=== PATIENT | female | born 1950 | race Caucasian/White ===

== ENCOUNTER 2018-08-19 22:03 | Emergency (ER) | payer MEDICARE, OTHER ==
[~2018-08-19] VITALS: Ht 162.6 cm; Wt 63.0 kg
--- NOTE | 2018-08-19 22:14 | ED Head Injury ---
General Stated Complaint: FALL/HEAD INJURY Source: patient, EMS Exam Limitations: no limitations History of Present Illness Date Seen by Provider: Aug 19, 2018 Time Seen by Provider: 22:10 Initial Comments To ER per EMS from [facility] with reports of a fall and head injury. She' s fallen about 5 times today and during one of these falls struck the center of her forehead on the edge of her dresser. No loss of consciousness. Tetanus is not up-to-date she states she is allergic to the tetanus vaccination. She was recently admitted to [facility] from [facility] where she was admitted from the rehabilitation unit at [facility] following a stroke 2 with left-sided deficit. She relates the falls to loss of balance as a result of her stroke. She states that she did land on the left hip and has some left hip pain. She is also had a runny nose and cough for the past few days. Occurred: just prior to arrival Severity: moderate Location: frontal Loss of Consciousness: no loss of consciousness Associated Systoms: No Headaches Allergies and Home Medications Allergies Uncoded Allergies: Tdap (Allergy, Unknown, 08/19/18) Patient Home Medication List Home Medication List Reviewed: Yes Review of Systems Review of Systems Constitutional: see HPI Eyes: No Symptoms Reported Ears, Nose, Mouth, Throat: no symptoms reported Respiratory: no symptoms reported Genitourinary: no symptoms reported Musculoskeletal: see HPI; No neck pain Skin: no symptoms reported Psychiatric/Neurological: Denies Headache Physical Exam Vital Signs Vital Signs - First Documented 08/19/18 22:05 Temp 96.9 Pulse 72 Resp 18 B/P (MAP) 136/62 (86) Pulse Ox 98 O2 Delivery Room Air Capillary Refill : Height, Weight, BMI Height: '" Weight: lbs. oz. kg; BMI Method: General Appearance: WD/WN, no apparent distress HEENT: PERRL/EOMI, normal ENT inspection, other (2 cm laceration to the center of the forehead just inferior to the hairline.) Respiratory: normal breath sounds, no respiratory distress, no accessory muscle use Extremities: normal range of motion, other (ecchymosis lateral left hip) Psychiatric: alert, oriented x 3 Motor/Sensory: no motor deficit, no sensory deficit Skin: normal color, warm/dry [place] Coma Score Best Eye Response: (4) Open Spontaneously Best Verbal Response: (5) Oriented Best Motor Response: (6) Obeys Commands [place] Total: 15 Procedures/Interventions Wound Location: Scalp Wound Length (cm): 2 Wound Explored: clean Irrigated w/ Saline (ccs): 65 Anesthesia: Lidocaine w/ Epi Volume Anesthetic (ccs): 3 Suture: Ethlion Suture Size: 5-0 Number of Sutures: 7 Layer Closure?: 1 Number Deep Layer Sutures: 0 Progress/Results/Core Measures Results/Orders My Orders Orders - NICOLE BRICE APRN Lidocaine/Epi 1% 1:100,000 (Xylocaine /E (08/19/18 22:15) Ct Head/Cervical Spine Wo (08/19/18 22:08) Pelvis With Left Hip 2-3 Views (08/19/18 22:17) Lidocaine/Epi 2% 1:100,000 (Xylocaine/Ep (08/19/18 22:30) Fentanyl Injection (Sublimaze Injection (08/19/18 22:30) Medications Given in ED Current Medications Medications Dose Ordered Sig/Roni Route Start Time Stop Time Status Last Admin Dose Admin Fentanyl Citrate 50 mcg ONCE ONCE IVP 08/19/18 22:30 08/19/18 22:31 DC 08/19/18 22:24 50 MCG Lidocaine/ Epinephrine 2 ml ONCE ONCE INJ 08/19/18 22:30 08/19/18 22:31 DC 08/19/18 22:23 2 ML Vital Signs/I&O 08/19/18 08/19/18 22:05 22:24 Temp 96.9 96.9 Pulse 72 Resp 18 B/P (MAP) 136/62 (86) Pulse Ox 98 O2 Delivery Room Air Departure Communication (Admissions) Discussed the CT findings with radiology from stat read. The fixation plate is not flush against the anterior spinal column as expected. This does push against the esophagus and there is some esophageal thickening in this location suggesting this to be a chronic problem. Patient denies any neck pain now or ever. Cervical collar removed. We will give her phone number to Dr. Zhang and Dr. Cisse for follow-up. She is also got some issues with falling and is in the independent living side of [facility], may need to be sent to the assisted living side. Evaluated the pelvis and hip x-ray with Dr. Kyle. No acute findings Impression Primary Impression: Scalp laceration Qualified Codes: S01.01XA - Laceration without foreign body of scalp, initial encounter Additional Impressions: Bronchitis Contusion, hip Disposition: HOME, SELF-CARE Condition: Stable Departure-Patient Inst. Decision time for Depature: 23:18 Referrals: MANDI CISSE BRIAN J MD Patient Instructions: Laceration Repair With Stitches (DC) Add. Discharge Instructions: 1. You may shower starting tomorrow. Return to the emergency room to have the stitches removed in 6-7 days. Return to ER before then for any concerns. Call one of the spine surgeons listed to make an appointment to be seen to evaluate the location of the hardware in her neck to determine if this needs any intervention or not. Scripts Benzonatate (TESSALON PERLES) 100 Mg Capsule 100 MG PO TID PRN for COUGH, #14 CAP Prov: NICOLE BRICE DIRECTOR BLOOD BANK 08/19/18 Cephalexin (Keflex) 500 Mg Capsule 500 MG PO TID, #21 CAP Prov: NICOLE BRICE DIRECTOR BLOOD BANK 08/19/18 Copy Copies To 1: MARION GARCIA MD; LINETTE ZHANG MD, PETER J DIRECTOR BLOOD BANK Aug 19, 2018 22:14
[2018-08-19] MEDS ORDERED: LIDOCAINE/EPI 1%-1:100,000 (XYLOCAINE) 20ML INJ ONE (22:15)
[2018-08-19] MEDS ORDERED: LIDOCAINE/EPI 2% 1:100,00 (XYLOCAINE) 20 ML VIAL INJ ONE (22:30)
[2018-08-19] MEDS ORDERED: fentaNYL INJECTION 100 MCG/2 ML AMP IVP ONE (22:30)
[2018-08-19] MEDS ORDERED: CEPH-507 PO (23:21)
[2018-08-19] MEDS ORDERED: BENZ100C18 PO (23:21)
[2018-08-19 23:30] VITALS: BP 104/92
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
--- OUTSIDE RECORDS SUMMARY | 2018-08-19 23:33 | XMS REPORT ---
Author Author GEOFFREY AMES Organization [facility] Address [address] [place] [address] Care Team Providers Care Pneumatic Riveter Name Role Phone GEOFFREY AMES Unavailable PROBLEMS Unknown Problems ALLERGIES No Information ENCOUNTERS Encounter Location Date Diagnosis [facility] [address] [facility] [id number] [address] Jul, [facility] [address] [facility] [id number] [address] Jul, IMMUNIZATIONS No Known Immunizations SOCIAL HISTORY Never Assessed REASON FOR VISIT controlled med fill PLAN OF CARE VITAL SIGNS MEDICATIONS Medication Instructions Dosage Frequency Start Date End Date Duration Status Ativan 0.5 MG Orally at bedtime 1 tablet as needed 7 days Active RESULTS No Results PROCEDURES No Known procedures INSTRUCTIONS MEDICATIONS ADMINISTERED No Known Medications
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
--- NOTE | 2018-08-20 08:23 | Diagnostic Imaging Report ---
PATIENT HISTORY: Fall, pain in left hip. TECHNIQUE: Frontal view of the pelvis. Frontal and lateral views of the left hip. COMPARISON: None. FINDINGS: No acute fracture or dislocation is seen in the pelvis or left hip. Alignment appears normal. There is a right total hip arthroplasty without hardware complication seen. There are advanced degenerative changes in the left hip. There are mild degenerative changes in the bilateral sacroiliac joints. IMPRESSION: 1. Advanced degenerative changes in the left hip without acute osseous abnormality seen. 2. Total right hip arthroplasty without hardware complication seen. Dictated by: Dictated on workstation # [id number]
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
== END 2018-08-19 23:32 | disposition home or self-care (01) ==
LOC: ER 22:04
DX: S01.01XA Laceration without foreign body of scalp, initial encounter (principal); S70.02XA Contusion of left hip, initial encounter; J40 Bronchitis, not specified as acute or chronic; R40.2142 Coma scale, eyes open, spontaneous, at arrival to emergency department; R40.2252 Coma scale, best verbal response, oriented, at arrival to emergency department; R40.2362 Coma scale, best motor response, obeys commands, at arrival to emergency department; Z88.7 Allergy status to serum and vaccine; Z86.73 Personal history of transient ischemic attack (TIA), and cerebral infarction without residual deficits; W01.190A Fall on same level from slipping, tripping and stumbling with subsequent striking against furniture, initial encounter
CPT/HCPCS: 12011; 70450; 72125

== ENCOUNTER 2018-09-13 16:26 | Emergency (ER) | payer MEDICARE, BC ==
[~2018-09-13] VITALS: Ht 157.5 cm; Wt 56.7 kg
[~2018-09-13 16:26] MED LIST: BENZ100C18 PO; CEPH-507 PO
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
--- NOTE | 2018-09-13 17:14 | Diagnostic Imaging Report ---
INDICATION: Left hip pain. COMPARISON: 08/19/2018. TECHNIQUE: AP pelvis with AP and frog-leg lateral views of the left hip. FINDINGS: Severe degenerative changes of left hip are present. No displaced fracture of the proximal left femur. No hip dislocation. No displaced fracture within the pelvis. Right total hip arthroplasty. Heterotopic ossification along the superior and lateral margin of the right greater trochanter is unchanged. IMPRESSION: 1. Severe degenerative arthritis of the left hip without acute fracture. Dictated by: Dictated on workstation # [id number]
[2018-09-13] MEDS ORDERED: HYDROcodone/APAP 5 MG/325 MG (LORTAB) TAB PO ONE (17:15)
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
--- NOTE | 2018-09-13 18:12 | Diagnostic Imaging Report ---
PROCEDURE: CT head and CT cervical spine without contrast. TECHNIQUE: Multiple contiguous axial images were obtained through the brain and cervical spine without the use of intravenous contrast. Sagittal and coronal reformations through the cervical spine were then performed. INDICATION: Status post fall three days ago, bruising. CORRELATION STUDY: 08/19/2018. FINDINGS: CT HEAD: Mild generalized atrophic changes with prominence of the ventricles and sulci again demonstrated. Basal ganglia calcifications are present. No intracranial hemorrhage. Scattered areas of decreased attenuation, while nonspecific, favor likely changes of small vessel ischemic disease. Basilar cisterns are maintained. CT CERVICAL SPINE: Extensive surgical changes of the cervical spine without anterior plate and vertebral body screws extending from C3-C7. The plate remains anteriorly positioned in relation to the vertebral bodies and appears stable. Alignment appears to be relatively anatomic. Incomplete bony fusion is again demonstrated at C4-C5 and C5-C6 vertebral body segments. Posterior elements intact and in normal alignment. Odontoid intact. Slight asymmetry, anteriorly, at the C3-C4 level appears unchanged. Vascular calcification at the carotid bifurcation. IMPRESSION: CT HEAD: Generally stable, negative appearing noncontrast CT imaging of the head. CT CERVICAL SPINE: Stable appearance about the cervical spine. No suggestion for acute fracture or traumatic subluxation. Extensive anterior fusion from C3-C7 appears stable. Dictated by: Dictated on workstation # [id number]
--- NOTE | 2018-09-13 18:30 | Diagnostic Imaging Report ---
PROCEDURE: CT left lower extremity without contrast. TECHNIQUE: Multiple contiguous axial images were obtained through the left hip without the use of intravenous contrast. Sagittal and coronal reformations were then performed. INDICATION: Status post fall three days ago, left hip pain. Bruising. FINDINGS: Detail is limited on this study with extensive amount of artifact likely largely attributed to metallic streak artifact from right hip prosthesis. The femoral head acetabular relationship is maintained. There is; however, rather marked joint space narrowing. Osteophyte formation and subcortical cystic change, particularly of the acetabulum, is present. Diffuse bony demineralization is present. The greater trochanter and intertrochanteric region preserved. The left pubic rami are maintained with pubic symphysis preserved. Sacrum and SI joints are not included in the area imaged. Soft tissue are markedly limited on this study. IMPRESSION: Negative for acute fracture or dislocation of the left hip. Advanced osteoarthritic changes with joint space narrowing, osteophyte formation and subcortical cystic change. Dictated by: Dictated on workstation # [id number]
[2018-09-13] MEDS ORDERED: HYDR-4226 PO (18:53)
[2018-09-13 19:03] VITALS: BP 125/89
== END 2018-09-13 19:03 | disposition home or self-care (01) ==
LOC: EDUNIT# 16:26 → ER 16:28
DX: S70.02XA Contusion of left hip, initial encounter (principal); Z88.7 Allergy status to serum and vaccine; Z86.73 Personal history of transient ischemic attack (TIA), and cerebral infarction without residual deficits; W19.XXXA Unspecified fall, initial encounter; W22.09XA Striking against other stationary object, initial encounter; Y92.129 Unspecified place in nursing home as the place of occurrence of the external cause
CPT/HCPCS: 70450; 72125; 73700

== ENCOUNTER 2019-02-04 15:30 | Emergency (ER) | payer MEDICARE, BC ==
[~2019-02-04] VITALS: Ht 162.6 cm; Wt 64.0 kg
[~2019-02-04 15:30] MED LIST changes: +HYDR-4226 PO
--- OUTSIDE RECORDS SUMMARY | 2019-02-04 15:35 | XMS REPORT | Continuity of Care Document ---
Author Organization Unknown Address Unknown Allergies There is no data. Medications There is no data. Problems There is no data. Procedures There is no data. Results There is no data. Encounters ACCT No. Visit Date/Time Discharge Status Pt. Type Provider Facility Loc./Unit Complaint [id number] 12/19/2018 10:40:00 12/19/2018 23:59:59 CLS Outpatient JOSE SMART, MARION [facility]TERZachary [facility]
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
[2019-02-04] MEDS ORDERED: fentaNYL INJECTION 100 MCG/2 ML AMP IVP PRN (15:45)
[2019-02-04 15:54] LABS: BASOPHILS % (AUTO) 0 % (0-10); EOSINOPHILS # (AUTO) 0.1 10^3/uL (0.0-0.3); EOSINOPHILS % (AUTO) 1 % (0-10); HEMATOCRIT 32 % (35-52); LYMPHOCYTES # (AUTO) 0.7 X 10^3 (1.0-4.0); LYMPHOCYTES % (AUTO) 17 % (12-44); MEAN CORPUSCULAR HEMOGLOBIN 30 PG (25-34); MEAN CORPUSCULAR HGB CONC 34 G/DL (32-36); MEAN CORPUSCULAR VOLUME 88 FL (80-99); MEAN PLATELET VOLUME 10.6 FL (7.4-10.4); MONOCYTES # (AUTO) 0.5 X 10^3 (0.0-1.0); MONOCYTES % (AUTO) 11 % (0-12); NEUTROPHILS # (AUTO) 3.1 X 10^3 (1.8-7.8); NEUTROPHILS % (AUTO) 71 % (42-75); PLATELET COUNT 212 10^3/uL (130-400); RED CELL DISTRIBUTION WIDTH 13.9 % (10.0-14.5); WHITE BLOOD COUNT 4.3 10^3/uL (4.3-11.0)
--- NOTE | 2019-02-04 16:07 | Diagnostic Imaging Report ---
PATIENT HISTORY: Fall, left hip pain. TECHNIQUE: Two views of the left hip. COMPARISON: 09/13/2018. FINDINGS: Brbuxefk-qa-yuqihf degenerative changes are seen in the left hip joint, similar to the prior study. No acute fracture is seen. The femoral head is well seated in the acetabulum. IMPRESSION: Sucsczgw-sb-ghdwuy degenerative changes in the left hip with no acute fracture seen. Dictated by: Dictated on workstation # [id number]
[2019-02-04 16:13] LABS: ALBUMIN 4.2 GM/DL (3.2-4.5); BILIRUBIN,TOTAL 0.3 MG/DL (0.1-1.0); CALCIUM 9.1 MG/DL (8.5-10.1); CREATININE SERUM 1.36 MG/DL (0.60-1.30); POTASSIUM 4.9 MMOL/L (3.6-5.0); TOTAL PROTEIN 6.3 GM/DL (6.4-8.2)
--- NOTE | 2019-02-04 16:29 | ED Fall/Injury ---
General Chief Complaint: Trauma EMS/Air Arrival Activat Stated Complaint: FALL Nursing Triage Note: see trama flow sheet Source: patient Exam Limitations: no limitations History of Present Illness Date Seen by Provider: February 04, 2019 Time Seen by Provider: 15:35 Initial Comments Patient presents with the chief complaint that just prior to arrival she had a fall. Standing struck the back of her head did not lose consciousness. She is on Plavix. EMS reports he was acting confused and asking same questions over again. GCS 14. Patient was taking her trash out lost her balance and fell backwards striking the back of her head against the concrete. Allergies and Home Medications Allergies Coded Allergies: sulfamethoxazole (Verified Allergy, Unknown, 02/04/19) trimethoprim (Verified Allergy, Unknown, 02/04/19) Uncoded Allergies: Tdap (Allergy, Unknown, 08/19/18) Home Medications Benzonatate 100 Mg Capsule, 100 MG PO TID PRN for COUGH Prescribed by: NICOLE BRICE on 08/19/18 232 Cephalexin 500 Mg Capsule, 500 MG PO TID Prescribed by: NICOLE BRICE on 08/19/18 2321 Hydrocodone/Acetaminophen 1 Each Tablet, 1 EACH PO Q6H PRN for PAIN-MODERATE Prescribed by: NICOLE BRICE on 09/13/18 1853 Ondansetron 4 Mg Tab.rapdis, 4 MG PO Q6H PRN for NAUSEA/VOMITING Prescribed by: MARY MERLOS on 02/04/19 1707 Patient Home Medication List Home Medication List Reviewed: Yes Review of Systems Review of Systems Constitutional: No chills, No diaphoresis Eyes: Denies Blindness, Denies Blurred Vision Ears, Nose, Mouth, Throat: denies ear pain, denies ear discharge Cardiovascular: No chest pain, No palpitations Gastrointestinal: No abdominal pain, No constipation, No nausea Past Rynqyyh-Weacgh-Fiyjuv Hx Patient Social History Alcohol Use: Denies Use Recreational Drug Use: No 2nd Hand Smoke Exposure: No Recent Foreign Travel: No Contact w/Someone Who Travel: No Recent Infectious Disease Expo: No Recent Hopitalizations: No Immunizations Up To Date Tetanus Booster (TDap): Unknown Seasonal Allergies Seasonal Allergies: No Past Medical History Surgeries: Yes Orthopedic Respiratory: No Cardiac: No Neurological: Yes 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 oz. 63.028572jo; 21.09 BMI Method:Stated General Appearance: WD/WN, no apparent distress HEENT: PERRL/EOMI, normal ENT inspection, TMs normal, other (3 cm diameter hematoma on the right occiput without any other trauma seen. No laceration. No hemotympanum, malcolm sign or raccoon eyes.) Neck: non-tender, full range of motion, supple, normal inspection Cardiovascular: normal peripheral pulses, regular rate, rhythm Respiratory: chest non-tender, lungs clear, normal breath sounds, no respiratory distress, no accessory muscle use Peripheral Pulses: 2+ Dorsalis Pedis (R), 2+ Left Dors-Pedis (L), 2+ Radial Pulses (R), 2+ Radial Pulses (L) Gastrointestinal: normal bowel sounds, non tender, soft, no organomegaly Back: normal inspection, no vertebral tenderness Extremities: normal range of motion, non-tender, normal inspection, no pedal edema, no calf tenderness, normal capillary refill, other (mild tenderness in the left hip over the greater trochanter femur) 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, no motor/sensory deficits, alert, normal mood/affect, oriented x 3, other (mild stutter) Skin: normal color, warm/dry, ecchymosis (right occiput) Procedures/Interventions Suture Size: 5-0 Progress/Results/Core Measures Results/Orders Lab Results Laboratory Tests Test 02/04/19 15:44 Range/Units White Blood Count 4.3 4.3-11.0 10^3/uL Red Blood Count 3.67 L 4.35-5.85 10^6/uL Hemoglobin 11.0 L 11.5-16.0 G/DL Hematocrit 32 L 35-52 % Mean Corpuscular Volume 88 80-99 FL Mean Corpuscular Hemoglobin 30 25-34 PG Mean Corpuscular Hemoglobin Concent 34 32-36 G/DL Red Cell Distribution Width 13.9 10.0-14.5 % Platelet Count 212 130-400 10^3/uL Mean Platelet Volume 10.6 H 7.4-10.4 FL Neutrophils (%) (Auto) 71 42-75 % Lymphocytes (%) (Auto) 17 12-44 % Monocytes (%) (Auto) 11 0-12 % Eosinophils (%) (Auto) 1 0-10 % Basophils (%) (Auto) 0 0-10 % Neutrophils # (Auto) 3.1 1.8-7.8 X 10^3 Lymphocytes # (Auto) 0.7 L 1.0-4.0 X 10^3 Monocytes # (Auto) 0.5 0.0-1.0 X 10^3 Eosinophils # (Auto) 0.1 0.0-0.3 10^3/uL Basophils # (Auto) 0.0 0.0-0.1 10^3/uL Sodium Level 135 135-145 MMOL/L Potassium Level 4.9 3.6-5.0 MMOL/L Chloride Level 102 98-107 MMOL/L Carbon Dioxide Level 21 21-32 MMOL/L Anion Gap 12 5-14 MMOL/L Blood Urea Nitrogen 17 7-18 MG/DL Creatinine 1.36 H 0.60-1.30 MG/DL Estimat Glomerular Filtration Rate 38 BUN/Creatinine Ratio 13 Glucose Level 94 70-105 MG/DL Calcium Level 9.1 8.5-10.1 MG/DL Corrected Calcium 8.9 8.5-10.1 MG/DL Total Bilirubin 0.3 0.1-1.0 MG/DL Aspartate Amino Transf (AST/SGOT) 19 5-34 U/L Alanine Aminotransferase (ALT/SGPT) 20 0-55 U/L Alkaline Phosphatase 86 40-136 U/L Total Protein 6.3 L 6.4-8.2 GM/DL Albumin 4.2 3.2-4.5 GM/DL My Orders Orders - MARY MERLOS Ct Head/Cervical Spine Wo (02/04/19 15:38) Hip, Left, 2 Views (02/04/19 15:38) Cbc With Automated Diff (02/04/19 15:38) Comprehensive Metabolic Panel (02/04/19 15:38) Fentanyl Injection (Sublimaze Injection (02/04/19 15:45) Naproxen Tablet (Naprosyn Tablet) (02/04/19 17:15) Ibuprofen Tablet (Motrin Tablet) (02/04/19 17:45) Medications Given in ED Current Medications Medications Dose Ordered Sig/Roni Route Start Time Stop Time Status Last Admin Dose Admin Fentanyl Citrate 50 mcg Q1H PRN IVP 02/04/19 15:45 02/04/19 15:53 50 MCG Ibuprofen 800 mg ONCE ONCE PO 02/04/19 17:45 02/04/19 17:46 DC 02/04/19 17:44 800 MG Progress Progress Note : Time: 17:55 Progress Note Consulted with trauma surgeon Dr. Vallecillo. He agrees with disposition. . EMS reports patient has some confusion however the family reports the patient at baseline has some confusion anyways subsequent to her history of stroke. Her stuttering is also subsequent to her stroke. Diagnostic Imaging Diagonstic Imaging: Xray Plain Films/CT/US/NM/MRI: pelvis (left hip), hip Comments NAME: SENIA ZACARIAS MED REC#: [id number] PHYSICIAN: MARY MERLOS MD CC: ASHLEY STEPHEN MD; MARY MERLOS Page 1 of 1 RADIOLOGY REPORT [facility] [place] CC: ASHLEY STEPHEN MD; MARY MERLOS Page 1 of 1 RADIOLOGY REPORT NAME: SENIA ZACARIAS MED REC#: [id number] PT STATUS: REG ER : 1950 PHYSICIAN: MARY MERLOS MD ADMIT DATE: 02/04/19/ER Signed Date of Exam: 02/04/19 HIP, LEFT, 2 VIEWS PATIENT HISTORY: Fall, left hip pain. TECHNIQUE: Two views of the left hip. COMPARISON: 09/13/2018. FINDINGS: Wvkevjts-no-zdhddn degenerative changes are seen in the left hip joint, similar to the prior study. No acute fracture is seen. The femoral head is well seated in the acetabulum. IMPRESSION: Yqirebeb-zr-oxezcq degenerative changes in the left hip with no acute fracture seen. Dictated by: Dictated on workstation # [id number] Dict: 02/04/19 1604 Trans: 02/04/19 1612 Interpreted by: ASHLEY STEPHEN MD Electronically signed by: ASHLEY STEPHEN MD 02/04/19 1612 Reviewed: Reviewed by Me Diagonstic Imaging: CT (noncontrast) Plain Films/CT/US/NM/MRI: c-spine, pelvis Comments [facility] [place] [place] NAME: SENIA ZACARIAS [facility] REC#: [id number] PT STATUS: REG ER : 1950 PHYSICIAN: MARY MERLOS MD ADMIT DATE: 02/04/19/ER Draft Date of Exam:02/04/19 CT HEAD/CERVICAL SPINE WO PROCEDURE: CT head and CT cervical spine without contrast. TECHNIQUE: Multiple contiguous axial images were obtained through the brain and cervical spine without the use of intravenous contrast. Sagittal and coronal reformations through the cervical spine were then performed. Auto Exposure Controls were utilized during the CT exam to meet ALARA standards for radiation dose reduction. INDICATION: Fall. Trauma to the head. COMPARISON: 09/13/2018. FINDINGS: CT head: The ventricles and cortical sulci are diffusely prominent, compatible with age-related volume loss. There are confluent areas of abnormal, low attenuation in the periventricular white matter. This is consistent with chronic small vessel ischemic changes. There is no midline shift or mass-effect. No acute intra-axial hemorrhage is seen. There are no abnormal areas of increased or decreased density to suggest acute hemorrhage or edema. No extra-axial masses or collections are present. Soft tissue hematoma is noted overlying the posterior right calvarium. The underlying bony calvarium is intact. The visualized paranasal sinuses are unremarkable. The mastoid air cells are clear. CT cervical spine: Static alignment of the cervical spine is maintained. Postsurgical changes of previous anterior fusion of C3 through C7 are identified. [place] screws appear well seated and are intact. Anterior fusion plate also appears to be intact and stable in position. No unexpected radiopaque foreign bodies are seen. There is no significant bozena or retrolisthesis. There is no evidence of jumped facets. Vertebral body heights are preserved. There is no evidence of acute fracture. No bony fragments are seen within the spinal canal. There are multilevel degenerative changes consisting of intervertebral disc height loss with anterior and posterior disc osteophyte complex formations, stable compared to prior exam. Pre and paravertebral soft tissue structures are unremarkable. Note is made of calcified carotid atherosclerosis. Included portions of the lung apices are clear IMPRESSION: 1. No acute intracranial abnormality. No CT evidence of mass, acute infarct or intracranial hemorrhage. 2. Chronic small vessel ischemic changes in deep white matter. 3. Soft tissue hematoma of the posterior scalp, but no underlying acute calvarial deformity. 4. No acute fracture or dislocation of the cervical spine. 5. Postsurgical changes of previous extensive anterior cervical fusion of the cervical spine. No evidence of hardware fracture or failure. Dictated on workstation # [id number] Dict: 02/04/19 1640 Trans: 02/04/19 1651 [id number] Interpreted by: PAUL COLE MD Electronically signed by: Reviewed: Reviewed by Me Departure Impression Primary Impression: Fall Qualified Codes: W19.XXXA - Unspecified fall, initial encounter Additional Impressions: Hematoma Concussion Qualified Codes: S06.0X0A - Concussion without loss of consciousness, initial encounter Disposition: 01 HOME, SELF-CARE Condition: Stable Departure-Patient Inst. Decision time for Depature: 17:06 Referrals: [facility] [place] ([place]P/Family) Primary Care Physician Patient Instructions: Concussion in Adults Add. Discharge Instructions: Ice pack to the back your head and Tylenol and Motrin as necessary. If you have any concussion symptoms of headache, confusion, nausea or blurry vision then you should get some sleep. Follow-up primary care as necessary. All discharge instructions reviewed with patient and/or family. Voiced understanding. Scripts Ondansetron (Ondansetron Odt) 4 Mg Tab.rapdis 4 MG PO Q6H PRN for NAUSEA/VOMITING, #8 TAB 0 Refills Prov: MARY MERLOS 02/04/19 MARY MERLOS February 04, 2019 16:29
--- NOTE | 2019-02-04 16:52 | Diagnostic Imaging Report ---
PROCEDURE: CT head and CT cervical spine without contrast. TECHNIQUE: Multiple contiguous axial images were obtained through the brain and cervical spine without the use of intravenous contrast. Sagittal and coronal reformations through the cervical spine were then performed. Auto Exposure Controls were utilized during the CT exam to meet ALARA standards for radiation dose reduction. INDICATION: Fall. Trauma to the head. COMPARISON: 09/13/2018. FINDINGS: CT head: The ventricles and cortical sulci are diffusely prominent, compatible with age-related volume loss. There are confluent areas of abnormal, low attenuation in the periventricular white matter. This is consistent with chronic small vessel ischemic changes. There is no midline shift or mass-effect. No acute intra-axial hemorrhage is seen. There are no abnormal areas of increased or decreased density to suggest acute hemorrhage or edema. No extra-axial masses or collections are present. Soft tissue hematoma is noted overlying the posterior right calvarium. The underlying bony calvarium is intact. The visualized paranasal sinuses are unremarkable. The mastoid air cells are clear. CT cervical spine: Static alignment of the cervical spine is maintained. Postsurgical changes of previous anterior fusion of C3 through C7 are identified. [place] screws appear well seated and are intact. Anterior fusion plate also appears to be intact and stable in position. No unexpected radiopaque foreign bodies are seen. There is no significant bozena or retrolisthesis. There is no evidence of jumped facets. Vertebral body heights are preserved. There is no evidence of acute fracture. No bony fragments are seen within the spinal canal. There are multilevel degenerative changes consisting of intervertebral disc height loss with anterior and posterior disc osteophyte complex formations, stable compared to prior exam. Pre and paravertebral soft tissue structures are unremarkable. Note is made of calcified carotid atherosclerosis. Included portions of the lung apices are clear IMPRESSION: 1. No acute intracranial abnormality. No CT evidence of mass, acute infarct or intracranial hemorrhage. 2. Chronic small vessel ischemic changes in deep white matter. 3. Soft tissue hematoma of the posterior scalp, but no underlying acute calvarial deformity. 4. No acute fracture or dislocation of the cervical spine. 5. Postsurgical changes of previous extensive anterior cervical fusion of the cervical spine. No evidence of hardware fracture or failure. Dictated by: Dictated on workstation # [id number]
[2019-02-04] MEDS ORDERED: ONDA4TAB11 PO (17:07)
[2019-02-04] MEDS ORDERED: NAPROXEN 250 MG (NAPROSYN) TABLET PO ONE (17:15)
[2019-02-04] MEDS ORDERED: IBUPROFEN 800 MG (MOTRIN) TAB PO ONE (17:45)
[2019-02-04 17:51] VITALS: BP 143/64
== END 2019-02-04 17:51 | disposition home or self-care (01) ==
LOC: EDUNIT# 15:30 → ER 15:31
DX: S06.0X0A Concussion without loss of consciousness, initial encounter (principal); S00.03XA Contusion of scalp, initial encounter; Z88.2 Allergy status to sulfonamides; Z88.1 Allergy status to other antibiotic agents; Z88.8 Allergy status to other drugs, medicaments and biological substances; Z79.02 Long term (current) use of antithrombotics/antiplatelets; Z86.73 Personal history of transient ischemic attack (TIA), and cerebral infarction without residual deficits; W01.198A Fall on same level from slipping, tripping and stumbling with subsequent striking against other object, initial encounter
CPT/HCPCS: 36415; 70450; 72125; 73502; 80053; 85025

== ENCOUNTER → 2019-05-22 | Outpatient (CLI) | payer MEDICARE, OTHER, BC ==
[~2019-05-22] MED LIST changes: +ONDA4TAB11 PO
--- NOTE | 2019-05-22 11:53 | Diagnostic Imaging Report ---
INDICATION: Blurred vision in left eye and weakness and speech difficulty. Noncontrast brain CT is performed. COMPARISON: 02/04/2019 FINDINGS: There were no extra-axial fluid collections. No intracranial hemorrhage. No intracranial mass or mass effect. No midline shift. There are mild low-density changes in the deep white matter compatible with chronic ischemic change similar to the previous study. There is no overt acute change compared to the previous CT. Calvarial windows appear unremarkable. IMPRESSION: Mild chronic changes in deep white matter compatible with small vessel ischemic change. No acute hemorrhage or mass effect or acute appearing finding. Dictated by: Dictated on workstation # [id number]
== END ==
LOC: RAD 11:08
PROVIDERS: ATTEND Pediatrics
DX: H53.8 Other visual disturbances (principal); R90.82 White matter disease, unspecified; R29.898 Other symptoms and signs involving the musculoskeletal system
CPT/HCPCS: 70450

== ENCOUNTER → 2019-05-28 | Outpatient (CLI) | payer MEDICARE, OTHER ==
--- NOTE | 2019-05-28 16:33 | Diagnostic Imaging Report ---
INDICATION: COUGH COMPARISON: None FINDINGS: Frontal and lateral views of the chest demonstrate normal heart size and pulmonary vascularity. The lungs are clear. There are no signs of infiltrate, pleural effusions or pneumothoraces. The visualized osseous structures show no acute abnormalities. There is calcified aortic atherosclerosis. IMPRESSION: 1. No acute process. No signs of infiltrates, effusions or pneumothoraces. Dictated by: Dictated on workstation # [id number]
== END ==
LOC: RAD 10:58
PROVIDERS: ATTEND Pediatrics
DX: R05 Cough (principal); R06.02 Shortness of breath
CPT/HCPCS: 71046

== ENCOUNTER → 2019-06-08 | Outpatient (CLI) | payer MEDICARE, OTHER ==
--- NOTE | 2019-06-08 10:04 | Diagnostic Imaging Report ---
PROCEDURE: US carotid duplex, bilateral. TECHNIQUE: Multiple real-time grayscale images were obtained over the carotid arteries in various projections, bilaterally. Additional spectral analysis and color Doppler duplex images were also obtained. INDICATION: CVA. FINDINGS: Mild plaquing at the carotid bifurcations as well as the proximal internal and external carotid arteries is noted. Velocities are normal bilaterally. No velocity elevation within the common or internal carotid arteries is seen. There is some mild velocity elevation noted in the left ECA with moderate elevation in the right ECA. Both vertebral arteries demonstrate antegrade flow. IMPRESSION: Mild bilateral carotid plaque. There is no evidence of a hemodynamically significant stenosis. Parameters based on the consensus panel Lackey-Scale and Doppler ultrasound criteria published July 2003, Radiology, Volume 229. DOPPLER (peak systolic velocity M/S Right Left CCA .72 .83 ICA Proximal .72 .55 ICA Mid .96 .64 ICA Distal .67 .83 RATIO 1.34 1.0 ECA 2.44 1.38 VERT .62 .92 Dictated by: Dictated on workstation # [id number]
== END ==
LOC: CARD 08:17
PROVIDERS: ATTEND Pediatrics
DX: I08.0 Rheumatic disorders of both mitral and aortic valves (principal); I63.233 Cerebral infarction due to unspecified occlusion or stenosis of bilateral carotid arteries; G83.14 Monoplegia of lower limb affecting left nondominant side; I67.81 Acute cerebrovascular insufficiency
CPT/HCPCS: 93306; 93880

== ENCOUNTER 2019-08-29 22:29 | Emergency (ER) | payer MEDICARE, OTHER ==
[~2019-08-29] VITALS: Ht 163 cm; Wt 64.0 kg
[2019-08-29] MEDS ORDERED: cloNIDine 0.1 MG (CATAPRES) TAB PO ONE (22:45)
[2019-08-29] MEDS ORDERED: DOXE10CA29 (22:51)
[2019-08-29] MEDS ORDERED: CLOP75TA28 (22:51)
[2019-08-29] MEDS ORDERED: LISI-556 (22:51)
[2019-08-29] MEDS ORDERED: BUSP5TAB59 (22:51)
[2019-08-29] MEDS ORDERED: CEFD300C3 (22:51)
[2019-08-29] MEDS ORDERED: AMOX1TAB12 (22:51)
--- NOTE | 2019-08-29 23:38 | NUR ---
informed pt erp in with other patient and wait time expected.
--- NOTE | 2019-08-30 00:20 | ED Upper Extremity ---
General Chief Complaint: Cardiac/General Problems Stated Complaint: HIGH BP - 233/110 Nursing Triage Note: c/o high blood pressure, headache Nursing Sepsis Screen: No Definite Risk Source: patient, spouse Exam Limitations: no limitations History of Present Illness Date Seen by Provider: Aug 30, 2019 Time Seen by Provider: 00:07 Initial Comments Patient resents to ER by private conveyance with chief complaint of high blood pressure and a headache. She had no neurologic symptoms. She has a history of strokes. She is only on lisinopril 5 mg daily for blood pressure. She has been having problems with blood pressure past week or so so she made an appointment with Dr. Molina for Saturday, 3 days from now. She typically follows with Dr. So. She has not seen Dr. Molina yet. She was diagnosed with UTI on and is [place]efdin[place] twice a [place] [facility] She does not have any fevers chills abdominal pain nausea vomiting weakness numbness blurry vision, blindness. Her headache has improved and her blood pressure has improved with clonidine. Allergies and Home Medications Allergies Coded Allergies: sulfamethoxazole (Verified Allergy, Unknown, 02/04/19) trimethoprim (Verified Allergy, Unknown, 02/04/19) Uncoded Allergies: Tdap (Allergy, Unknown, 08/19/18) Patient Home Medication List Home Medication List Reviewed: Yes Review of Systems Constitutional: No chills, No diaphoresis EENTM: No ear discharge, No hearing loss Respiratory: No cough, No short of breath Cardiovascular: No chest pain, No edema Gastrointestinal: No abdominal pain, No nausea, No vomiting Genitourinary: No discharge, No dysuria Musculoskeletal: No back pain, No joint pain Skin: No pruritus, No rash Past Kjrizyg-Marzgy-Zrpcfs Hx Patient Social History Alcohol Use: Denies Use Recreational Drug Use: No Smoking Status: Never a Smoker 2nd Hand Smoke Exposure: No Recent Foreign Travel: No Contact w/Someone Who Travel: No Recent Infectious Disease Expo: No Recent Hopitalizations: No Physical Abuse: No Sexual Abuse: No Mistreated: No Fear: No Immunizations Up To Date Tetanus Booster (TDap): Unknown Seasonal Allergies Seasonal Allergies: No Past Medical History Surgeries: Yes Orthopedic Respiratory: No Cardiac: Yes Hypertension Neurological: Yes TIA : 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 oz. 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, no motor/sensory deficits, alert, normal mood/affect, oriented x 3, other (baseline paresthesias right lower extremity) Skin: normal color, warm/dry Procedures/Interventions Suture Size: 5-0 Progress/Results/Core Measures Results/Orders My Orders Orders - MARY MERLOS Clonidine Tablet (Catapres Tablet) (08/29/19 22:45) Ekg Tracing (08/29/19 22:56) Medications Given in ED Current Medications Medications Dose Ordered Sig/Roni Route Start Time Stop Time Status Last Admin Dose Admin Clonidine HCl 0.2 mg ONCE ONCE PO 08/29/19 22:45 08/29/19 22:46 DC 08/29/19 22:49 0.2 MG Vital Signs/I&O 08/29/19 22:38 Temp 36.8 Pulse 69 Resp 18 B/P (MAP) 244/107 (152) Pulse Ox 98 O2 Delivery Room Air Blood Pressure Mean: 152 POS Progress Progress Note : Time: 00:39 Progress Note After her blood pressure was also noted her symptoms. She's not having any neurologic symptoms. Suspect she is having hypertensive urgency. We'll put her on 20 mg lisinopril until she follows up with her primary care appointment in 3 days. We have also instructed her to take a second 20 mg of lisinopril if her blood pressure stays high above 200 systolic. Departure Impression Primary Impression: Hypertensive urgency Additional Impression: Headache Qualified Codes: R51 - Headache Disposition: 01 HOME, SELF-CARE Condition: Stable Departure-Patient Inst. Decision time for Depature: 00:40 Referrals: PAULO SO MD (PCP/Family) Primary Care Physician Patient Instructions: High Blood Pressure (DC), Headache, Adult (DC) Add. Discharge Instructions: Please return to the ER. Begin to have any neurologic symptoms of weakness, inability to walk, inability to recognize faces, confusion, visual changes, facial droop, slurring speech. Start taking 20 mg of lisinopril daily. If you're still having systolic blood pressure above 200 mmHg by noon and you may take a second 20 mg for a total of 40 a day. Keep your follow-up appointment on Saturday. All discharge instructions reviewed with patient and/or family. Voiced understanding. Scripts Lisinopril (Lisinopril) 20 Mg Tablet 20 MG PO DAILY for 7 Days, #7 TAB 0 Refills Prov: MARY MERLOS 08/30/19 MARY MERLOS Aug 30, 2019 00:20 POS
[2019-08-30] MEDS ORDERED: LISI-552 PO (00:43)
[2019-08-30 00:45] VITALS: BP 136/74
[2019-08-31] MEDS ORDERED: ALPR0.5T PO (21:04)
[2019-08-31] MEDS ORDERED: LORA0.5T PO (21:04)
== END 2019-08-30 00:46 | disposition home or self-care (01) ==
LOC: EDUNIT# 22:29 → ER 22:30
DX: I16.0 Hypertensive urgency (principal); R51 Headache; I10 Essential (primary) hypertension; Z86.73 Personal history of transient ischemic attack (TIA), and cerebral infarction without residual deficits; Z88.2 Allergy status to sulfonamides; Z88.1 Allergy status to other antibiotic agents; Z88.7 Allergy status to serum and vaccine
CPT/HCPCS: 93005

== ENCOUNTER 2019-08-31 19:49 | Emergency (ER) | payer MEDICARE, OTHER ==
[~2019-08-31] VITALS: Ht 162.5 cm; Wt 65.7 kg
[~2019-08-31 19:49] MED LIST changes: +AMOX1TAB12; +BUSP5TAB59; +CEFD300C3; +CLOP75TA28; +DOXE10CA29; +LISI-552 PO; +LISI-556
[2019-08-31 20:06] LABS: BASOPHILS % (AUTO) 0 % (0-10); EOSINOPHILS # (AUTO) 0.1 10^3/uL (0.0-0.3); EOSINOPHILS % (AUTO) 1 % (0-10); HEMATOCRIT 38 % (35-52); HEMOGLOBIN 13.1 G/DL (11.5-16.0); LYMPHOCYTES # (AUTO) 1.5 X 10^3 (1.0-4.0); LYMPHOCYTES % (AUTO) 22 % (12-44); MEAN CORPUSCULAR HEMOGLOBIN 30 PG (25-34); MEAN CORPUSCULAR HGB CONC 34 G/DL (32-36); MEAN CORPUSCULAR VOLUME 87 FL (80-99); MONOCYTES # (AUTO) 0.8 X 10^3 (0.0-1.0); MONOCYTES % (AUTO) 12 % (0-12); NEUTROPHILS # (AUTO) 4.4 X 10^3 (1.8-7.8); NEUTROPHILS % (AUTO) 66 % (42-75); PLATELET COUNT 254 10^3/uL (130-400); WHITE BLOOD COUNT 6.6 10^3/uL (4.3-11.0)
[2019-08-31] MEDS ORDERED: cloNIDine 0.1 MG (CATAPRES) TAB PO ONE (20:15)
[2019-08-31 20:18] LABS: ALANINE AMINOTRANSFERASE 23 U/L (0-55); ALBUMIN 4.5 GM/DL (3.2-4.5); ALKALINE PHOSPHATASE 92 U/L (40-136); BILIRUBIN,TOTAL 0.3 MG/DL (0.1-1.0); BUN/CREATININE RATIO 18; CALCIUM 9.6 MG/DL (8.5-10.1); CARBON DIOXIDE 23 MMOL/L (21-32); CHLORIDE 101 MMOL/L (98-107); CREATININE SERUM 0.96 MG/DL (0.60-1.30); GFR ESTIMATED 57; GLUCOSE 95 MG/DL (70-105); POTASSIUM 3.7 MMOL/L (3.6-5.0); SODIUM 137 MMOL/L (135-145)
--- NOTE | 2019-08-31 20:26 | ED Cardiac General ---
History of Present Illness General Chief Complaint: Cardiac/General Problems Stated Complaint: HTN Source: patient Exam Limitations: no limitations History of Present Illness Date Seen by Provider: Aug 31, 2019 Time Seen by Provider: 20:24 Initial Comments To ER with high blood pressure. She arrives per EMS from home. Blood pressure was as high as 230/130, she was given one sublingual nitroglycerin. She denies chest pain or shortness of breath. Her only complaint is of a headache. 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 PLANT OPERATOR: No Associated Systoms: Headaches Allergies and Home Medications Allergies Coded Allergies: sulfamethoxazole (Verified Allergy, Unknown, 02/04/19) trimethoprim (Verified Allergy, Unknown, 02/04/19) Uncoded Allergies: Tdap (Allergy, Unknown, 08/19/18) Home Medications Alprazolam 0.5 Mg Tablet, 0.5 MG PO BID PRN for ANXIETY Prescribed by: NICOLE BRICE on 08/31/192103 Lisinopril 20 Mg Tablet, 20 MG PO DAILY Prescribed by: MARY MERLOS on 08/30/1944 Lorazepam 0.5 Mg Tablet, 0.5 MG PO BID PRN for ANXIETY Prescribed by: NICOLE BRICE on 08/31/192103 Patient Home Medication List Home Medication List Reviewed: Yes Review of Systems Review of Systems Constitutional: see HPI EENTM: No Symptoms Reported Respiratory: No Symptoms Reported Cardiovascular: No Symptoms Reported Gastrointestinal: No Symptoms Reported Genitourinary: No Symptoms Reported Musculoskeletal: no symptoms reported Skin: no symptoms reported Psychiatric/Neurological: See HPI, Headache Endocrine: No Symptoms Reported Hematologic/Lymphatic: No Symptoms Reported Past Ssgbqpk-Gdsmgw-Gqaded Hx Patient Social History 2nd Hand Smoke Exposure: No Recent Foreign Travel: No Contact w/Someone Who Travel: No Recent Hopitalizations: No Immunizations Up To Date Tetanus Booster (TDap): Unknown Seasonal Allergies Seasonal Allergies: No Past Medical History Surgeries: Yes Orthopedic Respiratory: No Cardiac: Yes Hypertension Neurological: Yes TIA 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 oz. 63.359557qc; 24.00 BMI Method:Stated General Appearance: No Apparent Distress, WD/WN, Other (alert and oriented pleasant conversing with me) HEENT: PERRL/EOMI, TMs Normal Neck: Full Range of Motion, Normal Inspection Respiratory: Normal Breath Sounds, No Accessory Muscle Use, No Respiratory Distress Cardiovascular: Regular Rate, Rhythm, Normal Peripheral Pulses Gastrointestinal: Non Tender, Soft Extremity: Normal Capillary Refill Neurologic/Psychiatric: Alert, Oriented x3 Skin: Normal Color, Warm/Dry Procedures/Interventions Suture Size: 5-0 Progress/Results/Core Measures Results/Orders Lab Results Laboratory Tests Test 08/31/19 19:51 Range/Units White Blood Count 6.6 4.3-11.0 10^3/uL Red Blood Count 4.43 4.35-5.85 10^6/uL Hemoglobin 13.1 11.5-16.0 G/DL Hematocrit 38 35-52 % Mean Corpuscular Volume 87 80-99 FL Mean Corpuscular Hemoglobin 30 25-34 PG Mean Corpuscular Hemoglobin Concent 34 32-36 G/DL Red Cell Distribution Width 14.0 10.0-14.5 % Platelet Count 254 130-400 10^3/uL Mean Platelet Volume 11.0 H 7.4-10.4 FL Neutrophils (%) (Auto) 66 42-75 % Lymphocytes (%) (Auto) 22 12-44 % Monocytes (%) (Auto) 12 0-12 % Eosinophils (%) (Auto) 1 0-10 % Basophils (%) (Auto) 0 0-10 % Neutrophils # (Auto) 4.4 1.8-7.8 X 10^3 Lymphocytes # (Auto) 1.5 1.0-4.0 X 10^3 Monocytes # (Auto) 0.8 0.0-1.0 X 10^3 Eosinophils # (Auto) 0.1 0.0-0.3 10^3/uL Basophils # (Auto) 0.0 0.0-0.1 10^3/uL Sodium Level 137 135-145 MMOL/L Potassium Level 3.7 3.6-5.0 MMOL/L Chloride Level 101 98-107 MMOL/L Carbon Dioxide Level 23 21-32 MMOL/L Anion Gap 13 5-14 MMOL/L Blood Urea Nitrogen 17 7-18 MG/DL Creatinine 0.96 0.60-1.30 MG/DL Estimat Glomerular Filtration Rate 57 BUN/Creatinine Ratio 18 Glucose Level 95 70-105 MG/DL Calcium Level 9.6 8.5-10.1 MG/DL Corrected Calcium 9.2 8.5-10.1 MG/DL Total Bilirubin 0.3 0.1-1.0 MG/DL Aspartate Amino Transf (AST/SGOT) 24 5-34 U/L Alanine Aminotransferase (ALT/SGPT) 23 0-55 U/L Alkaline Phosphatase 92 40-136 U/L Troponin I < 0.028 <0.028 NG/ML Total Protein 7.0 6.4-8.2 GM/DL Albumin 4.5 3.2-4.5 GM/DL Thyroid Stimulating Hormone (TSH) 1.36 0.35-4.94 UIU/ML My Orders Orders - NICOLE BRICE APRN Cbc With Automated Diff (08/31/19 20:00) Comprehensive Metabolic Panel (08/31/19 20:00) Thyroid Stimulating Hormone (08/31/19 20:00) Chest 1 View, Ap/Pa Only (08/31/19 20:00) Ekg Tracing (08/31/19 20:00) Troponin I (08/31/19 20:00) Ct Head Wo (08/31/19 20:00) Ed Iv/Invasive Line Start (08/31/19 20:00) Clonidine Tablet (Catapres Tablet) (08/31/19 20:15) Alprazolam Tablet (Xanax Tablet) (08/31/19 20:45) Medications Given in ED Current Medications Medications Dose Ordered Sig/Roni Route Start Time Stop Time Status Last Admin Dose Admin Clonidine HCl 0.1 mg ONCE ONCE PO 08/31/19 20:15 08/31/19 20:16 DC 08/31/19 20:27 0.1 MG Departure Communication (Admissions) [id number]- feeling better at this time much more relaxed blood pressure 142/92 heart rate 75. Has an appointment tomorrow with Dr. Molina. Son called to report that she did stop taking all of her antidepressants one week ago as her friend told her she was taking too many medications. Impression Primary Impression: High blood pressure Qualified Codes: I10 - Essential (primary) hypertension Additional Impression: Anxiety Disposition: HOME, SELF-CARE Condition: Stable Departure-Patient Inst. Decision time for Depature: 21:03 Referrals: PAULO JIMENEZ MD (PCP/Family) Primary Care Physician Patient Instructions: Anxiety, Adult (DC) Add. Discharge Instructions: 1. Return to ER for any concerns 2. Follow-up with your doctor next week. Scripts Alprazolam (Xanax) 0.5 Mg Tablet 0.5 MG PO BID PRN for ANXIETY, #10 TAB Prov: NICOLE BRICE APRN 08/31/19 Lorazepam (Lorazepam) 0.5 Mg Tablet 0.5 MG PO BID PRN for ANXIETY, #10 TAB Prov: NICOLE BRICE APRN 08/31/19 Copy Copies To 1: MARLEEN MOLINA PETER J APRN Aug 31, 2019 20:26 POS
[2019-08-31] MEDS ORDERED: ALPRAZolam 0.5 MG (XANAX) TAB PO SCH (20:45)
--- NOTE | 2019-08-31 20:47 | Diagnostic Imaging Report ---
PROCEDURE: CT head without contrast. TECHNIQUE: Multiple contiguous axial images were obtained through the brain without the use of intravenous contrast. Auto Exposure Controls were utilized during the CT exam to meet ALARA standards for radiation dose reduction. INDICATION: Hypertension, dizziness COMPARISON: 05/22/2019 FINDINGS: The ventricles and cortical sulci are prominent. There is no midline shift or mass effect identified. No acute intracranial hemorrhage is seen. Areas of decreased attenuation are seen in the subcortical and periventricular white matter. These likely represent chronic microvascular disease. No CT evidence of acute territorial ischemia is seen. Senescent calcifications are seen in the basal ganglia bilaterally. The calvarium is intact. The paranasal sinuses appear clear. IMPRESSION: 1. No acute intracranial hemorrhage. No CT evidence of acute territorial ischemia. 2. Generalized parenchymal volume loss and findings of chronic microvascular disease. Dictated by: Dictated on workstation # [id number]
--- NOTE | 2019-08-31 20:48 | Diagnostic Imaging Report ---
HISTORY: Hypertension and dizziness COMPARISON: 05/28/2019 TECHNIQUE: Single frontal view of the chest. FINDINGS: Lung volumes are normal. No focal consolidation is seen. There is a calcified granuloma in the right lung base. The cardiac silhouette is normal in size. There is aortic atherosclerosis. Fusion hardware is seen in the cervical spine. IMPRESSION: 1. No acute pulmonary abnormality is seen. Dictated by: Dictated on workstation # [id number]
[2019-08-31] MEDS ORDERED: ALPR0.5T PO (21:04)
[2019-08-31] MEDS ORDERED: LORA0.5T PO (21:04)
[2019-08-31 21:56] VITALS: BP 145/72
== END 2019-08-31 22:42 | disposition home or self-care (01) ==
LOC: EDUNIT# 19:49 → ER 19:50
DX: I10 Essential (primary) hypertension (principal); F41.9 Anxiety disorder, unspecified; Z86.73 Personal history of transient ischemic attack (TIA), and cerebral infarction without residual deficits; Z88.2 Allergy status to sulfonamides; Z88.1 Allergy status to other antibiotic agents; Z88.7 Allergy status to serum and vaccine
CPT/HCPCS: 36415; 70450; 71045; 80053; 84443; 84484; 85025; 93005

== ENCOUNTER → 2019-09-24 | Outpatient (CLI) | payer MEDICARE, OTHER ==
[~2019-09-24] MED LIST changes: +ALPR0.5T PO; +LORA0.5T PO
--- NOTE | 2019-09-24 11:25 | Diagnostic Imaging Report ---
PROCEDURE: US carotid duplex, bilateral. TECHNIQUE: Multiple real-time grayscale images were obtained over the carotid arteries in various projections, bilaterally. Additional spectral analysis and color Doppler duplex images were also obtained. INDICATION: Hypertension, history of stroke. Syncope, dizziness, headaches. COMPARISON: 06/08/2019. FINDINGS: On the right, no significant atherosclerosis or stenosis is seen in the common carotid artery. There is calcific plaque in the carotid bulb and origin of the ICA causing approximately 30% narrowing. No significant stenosis is seen in the ICA or ECA. Waveforms demonstrate brisk upstrokes. The right vertebral artery is antegrade. On the left, there is no significant stenosis. Upstrokes are brisk in the waveform. The ECA is patent. The ICA is patent. There is a focal area of increased velocity in the distal ICA which is thought to be due to tortuosity rather than stenosis. The vertebral artery is antegrade. Parameters based on the consensus panel Lackey-Scale and Doppler ultrasound criteria published July 2003, Radiology, Volume 229. DOPPLER (peak systolic velocity M/S Right Left CCA .84 1.03 ICA Proximal .86 .69 ICA Mid .97 .91 ICA Distal 1.02 1.37 RATIO 1.2 1.3 ECA 2.56 1.07 VERT .59 .63 IMPRESSION: 1. Mild atherosclerosis in the carotid arteries without hemodynamically significant stenosis. Dictated by: Dictated on workstation # [id number]
== END ==
LOC: RAD 09:41
PROVIDERS: ATTEND Nurse Practitioner Family
DX: I65.23 Occlusion and stenosis of bilateral carotid arteries (principal); I10 Essential (primary) hypertension; Z86.73 Personal history of transient ischemic attack (TIA), and cerebral infarction without residual deficits
CPT/HCPCS: 93880

== ENCOUNTER 2019-10-19 13:29 | Outpatient (CLI) | payer MEDICARE ==
[~2019-10-19] VITALS: Ht 162 cm; Wt 65.9 kg
[2019-10-19] MEDS ORDERED: ASPI-999 PO (13:33)
[2019-10-19] MEDS ORDERED: OMEP20TA7 PO (13:33)
[2019-10-19] MEDS ORDERED: CALC-867 PO (13:33)
[2019-10-19] MEDS ORDERED: METO50TA7 PO (13:33)
[2019-10-19] MEDS ORDERED: CLOP75TA28 PO (13:33)
[2019-10-19] MEDS ORDERED: ASCO500C17 PO (13:33)
[2019-10-19] MEDS ORDERED: ASCO1TAB39 PO (13:33)
[2019-10-19] MEDS ORDERED: SPIR50TA4 PO (13:33)
[2019-10-19] MEDS ORDERED: GABA-488 PO (13:33)
[2019-10-19] MEDS ORDERED: LISI-552 PO (13:33)
[2019-10-19] MEDS ORDERED: RT-ALBUINH IH (13:35)
== END 2019-10-19 13:40 | disposition home or self-care (01) ==
LOC: PREOP 13:29
PROVIDERS: ATTEND Surgery
DX: Z01.818 Encounter for other preprocedural examination (principal)

== ENCOUNTER 2020-05-30 14:58 | Observation (INO) | payer MEDICARE, OTHER ==
[~2020-05-30] VITALS: Ht 162.6 cm; Wt 71.0 kg
[~2020-05-30 14:58] MED LIST changes: +ASCO1TAB39 PO; +ASCO500C17 PO; +ASPI-999 PO; +CALC-867 PO; +CLOP75TA28 PO; +GABA-488 PO; +METO50TA7 PO; +OMEP20TA7 PO; +RT-ALBUINH IH; +SPIR50TA4 PO
--- NOTE | 2020-05-30 15:09 | ED Chest Pain ---
General Chief Complaint: Chest Pain Stated Complaint: CHEST PAIN Source: patient Exam Limitations: no limitations History of Present Illness Date Seen by Provider: May 30, 2020 Time Seen by Provider: 14:56 Initial Comments patient presents to ER by private conveyance with chief complaint that sometime this morning around 6:00 only after she woke up before she got out of bed she began to experience substernal chest pain radiating up into her left and right neck. She says in the past she's had pain like this whenever she gets blood clots. She's not on a blood thinner but she is on Plavix. He has a history of coronary disease followed by Dr. Real as well as some kind of dysrhythmia. She is not having any nausea. She says her pain was much greater and she took 3 tablets of aspirin but it did not go away. Finally she decided to come to the ER. She did not take any nitroglycerin because she does not have any at home. She typically follows with Dr. Molina for primary care. She's not having any increase swelling in her hands or feet. She does not have diabetes. She does have hypertension, hyperlipidemia. She does not smoke cigarettes. She denies a history of hypothyroidism but does have a history of anxiety. Historical notes demonstrate that she had some minor dysarthria and confusion after her stroke in 2018. The patient says this is the same way she felt before her stroke in the past. She felt a rushing sensation almost like rushing water up her anterior left neck and some on her right as well. Allergies and Home Medications Allergies Coded Allergies: tetanus and diphtheria toxoids (Verified Allergy, Severe, SWELLING/REDNESS, FEVER, 10/19/19) sulfamethoxazole (Verified Allergy, Mild, HIVES, 10/19/19) trimethoprim (Verified Allergy, Mild, HIVES, 10/19/19) Home Medications Albuterol Sulfate 1 Puff Puff, 2 PUFF IH Q4H PRN for SHORTNESS OF BREATH, (Reported) 1 PUFF = 90 MCG Ascorbic Acid 500 Mg Capsule, 500 MG PO DAILY, (Reported) Ascorbic Acid/Vitamin E/Biotin 1 Each Tab.chew, 1 EACH PO DAILY, (Reported) Aspirin 81 Mg Tab.chew, 81 MG PO DAILY, (Reported) Calcium Phosphate Trib/Vit D3 1 Each Tab.chew, 1 EACH PO DAILY, (Reported) Clopidogrel Bisulfate 75 Mg Tablet, 75 MG PO DAILY, (Reported) Gabapentin 300 Mg Capsule, 300 MG PO DAILY, (Reported) Lisinopril 20 Mg Tablet, 40 MG PO DAILY, (Reported) Metoprolol Succinate 50 Mg Tab.er.24h, 50 MG PO DAILY, (Reported) Omeprazole 20 Mg Tablet.dr, 20 MG PO DAILY, (Reported) Spironolactone 50 Mg Tablet, 50 MG PO DAILY, (Reported) Patient Home Medication List Home Medication List Reviewed: Yes Review of Systems Review of Systems Constitutional: No chills, No diaphoresis EENTM: No Blurred Vision, No Double Vision Respiratory: Denies Cough, Denies Shortness of Air Cardiovascular: See HPI, Chest Pain; Denies Irregular Heart Rate; Lightheadedness Gastrointestinal: Denies Constipated, Denies Diarrhea, Denies Nausea, Denies Vomiting Genitourinary: Denies Burning, Denies Discharge Musculoskeletal: No back pain, No joint pain All Other Systems Reviewed Negative Unless Noted: Yes Past Mrhfhdw-Xpsver-Bxgbiu Hx Patient Social History Alcohol Use: Denies Use Recreational Drug Use: No Smoking Status: Never a Smoker Former Smoker, Quit: Oct 19, 1989 2nd Hand Smoke Exposure: Yes Recent Foreign Travel: No Contact w/Someone Who Travel: No Recent Hopitalizations: No Immunizations Up To Date Tetanus Booster (TDap): Unknown Date of Pneumonia Vaccine: Jun 22, 2019 Date of Influenza Vaccine: Jun 22, 2019 Seasonal Allergies Seasonal Allergies: Yes (RUNNY NOSE) Past Medical History Surgeries: Yes (RIGHT HIP REPLACEMENT,NECK SURG) Orthopedic Respiratory: Yes (SOB) Asthma Cardiac: Yes Hypertension Neurological: Yes (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, 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 Sexually Transmitted Disease: No HIV/AIDS: No Genitourinary: No Gastrointestinal: Yes Gastroesophageal Reflux, Chronic Diarrhea Musculoskeletal: Yes Chronic Back Pain Endocrine: No HEENT: Yes (GLASSES) Loss of Vision: Denies Hearing Impairment: Denies Cancer: No Psychosocial: Yes Anxiety, Depression Integumentary: No Blood Disorders: No Adverse Reaction/Blood Tranf: No (N/A) Physical Exam Vital Signs Vital Signs - First Documented 05/30/20 14:58 Temp 37.0 Pulse 59 Resp 16 B/P (MAP) 121/83 (96) Pulse Ox 98 O2 Delivery Room Air Capillary Refill : Height, Weight, BMI Height: 5'4.00" Weight: 141lbs. oz. 63.684364kf; 25.11 BMI Method:Stated General Appearance: Anxious, Mild Distress HEENT: PERRL/EOMI, Pharynx Normal, Moist Mucous Membranes Neck: Full Range of Motion, Normal Inspection, Non Tender Respiratory: Chest Non Tender, Lungs Clear, Normal Breath Sounds, No Accessory Muscle Use, No Respiratory Distress Cardiovascular: Regular Rate, Rhythm, No Edema, Normal Peripheral Pulses Gastrointestinal: Normal Bowel Sounds, Non Tender, Soft Extremity: Normal Capillary Refill, Normal Inspection, Normal Range of Motion, Non Tender, No Calf Tenderness, No Pedal Edema Neurologic/Psychiatric: Alert, Oriented x3, Other (anxious affect) Skin: Normal Color, Warm/Dry Procedures/Interventions Suture Size: 5-0 Progress/Results/Core Measures Results/Orders Lab Results Laboratory Tests Test 05/30/20 15:14 05/30/20 15:36 Range/Units White Blood Count 5.9 4.3-11.0 10^3/uL Red Blood Count 4.30 L 4.35-5.85 10^6/uL Hemoglobin 12.9 11.5-16.0 G/DL Hematocrit 39 35-52 % Mean Corpuscular Volume 91 80-99 FL Mean Corpuscular Hemoglobin 30 25-34 PG Mean Corpuscular Hemoglobin Concent 33 32-36 G/DL Red Cell Distribution Width 13.0 10.0-14.5 % Platelet Count 257 130-400 10^3/uL Mean Platelet Volume 10.4 7.4-10.4 FL Neutrophils (%) (Auto) 73 42-75 % Lymphocytes (%) (Auto) 16 12-44 % Monocytes (%) (Auto) 10 0-12 % Eosinophils (%) (Auto) 1 0-10 % Basophils (%) (Auto) 0 0-10 % Neutrophils # (Auto) 4.3 1.8-7.8 X 10^3 Lymphocytes # (Auto) 0.9 L 1.0-4.0 X 10^3 Monocytes # (Auto) 0.6 0.0-1.0 X 10^3 Eosinophils # (Auto) 0.1 0.0-0.3 10^3/uL Basophils # (Auto) 0.0 0.0-0.1 10^3/uL Prothrombin Time 13.8 12.2-14.7 SEC INR Comment 1.0 0.8-1.4 Activated Partial Thromboplast Time 28 24-35 SEC D-Dimer 0.34 0.00-0.49 UG/ML Sodium Level 136 135-145 MMOL/L Potassium Level 4.6 3.6-5.0 MMOL/L Chloride Level 100 98-107 MMOL/L Carbon Dioxide Level 27 21-32 MMOL/L Anion Gap 9 5-14 MMOL/L Blood Urea Nitrogen 21 H 7-18 MG/DL Creatinine 1.45 H 0.60-1.30 MG/DL Estimat Glomerular Filtration Rate 35 BUN/Creatinine Ratio 14 Glucose Level 88 70-105 MG/DL Calcium Level 9.5 8.5-10.1 MG/DL Corrected Calcium 9.2 8.5-10.1 MG/DL Magnesium Level 1.7 1.6-2.4 MG/DL Total Bilirubin 0.5 0.1-1.0 MG/DL Aspartate Amino Transf (AST/SGOT) 19 5-34 U/L Alanine Aminotransferase (ALT/SGPT) 15 0-55 U/L Alkaline Phosphatase 80 40-136 U/L Myoglobin 35.8 10.0-92.0 NG/ML Troponin I < 0.028 <0.028 NG/ML B-Type Natriuretic Peptide 206.8 H <100.0 PG/ML Total Protein 7.1 6.4-8.2 GM/DL Albumin 4.4 3.2-4.5 GM/DL Lipase 20 8-78 U/L Urine Color YELLOW Urine Clarity SL CLOUDY Urine pH 5.5 5-9 Urine Specific [place] 1.010 L 1.016-1.022 Urine Protein NEGATIVE NEGATIVE Urine Glucose (UA) NEGATIVE NEGATIVE Urine Ketones NEGATIVE NEGATIVE Urine Nitrite POSITIVE H NEGATIVE Urine Bilirubin NEGATIVE NEGATIVE Urine Urobilinogen 0.2 < = 1.0 MG/DL Urine Leukocyte Esterase 2+ H NEGATIVE Urine RBC (Auto) NEGATIVE NEGATIVE Urine RBC NONE /HPF Urine WBC >100 H /HPF Urine Crystals NONE /LPF Urine Bacteria LARGE H /HPF Urine Casts NONE /LPF Urine Mucus NEGATIVE /LPF Urine Culture Indicated YES My Orders Orders - MARY MERLOS Cbc With Automated Diff (05/30/20 15:07) Magnesium (05/30/20 15:07) Chest 1 View, Ap/Pa Only (05/30/20 15:07) Ekg Tracing (05/30/20 15:07) Comprehensive Metabolic Panel (05/30/20 15:07) Myoglobin Serum (05/30/20 15:07) Protime With Inr (05/30/20 15:07) Partial Thromboplastin Time (05/30/20 15:07) O2 (05/30/20 15:07) Monitor-Rhythm Ecg Trace Only (05/30/20 15:07) Lipid Panel (05/31/20 06:00) Ed Iv/Invasive Line Start (05/30/20 15:07) Lipase (05/30/20 15:07) BNP (05/30/20 15:07) Fibrin Degradation Products (05/30/20 15:07) Troponin I (05/30/20 15:07) Nitroglycerin 0.4 Mg Btl 25's (Nitrostat (05/30/20 15:15) Aspirin Chewable Tablet (Baby Aspirin Ch (05/30/20 15:15) Orthostatic Vital Signs (Adult (05/30/20 15:17) Ct Angio Head/Neck (05/30/20 15:20) Ua Culture If Indicated (05/30/20 15:25) Urine Culture (05/30/20 15:36) Medications Given in ED Current Medications Medications Dose Ordered Sig/Roni Route Start Time Stop Time Status Last Admin Dose Admin Aspirin 81 mg ONCE ONCE PO 05/30/20 15:15 05/30/20 15:16 DC 05/30/20 15:25 81 MG Nitroglycerin 0.4 mg UD PRN SL 05/30/20 15:15 05/30/20 15:48 0.4 MG Vital Signs/I&O 05/30/20 05/30/20 14:58 15:19 Temp 37.0 Pulse 59 96 96 62 Resp 16 B/P (MAP) 121/83 (96) 126/55 (78) 148/80 (102) 148/76 (100) Pulse Ox 98 O2 Delivery Room Air Progress Progress Note #1: Time: 15:15 Progress Note Chest pain, neurologically intact. History of pulmonary embolisms. Plan to get some labs, EKG chest x-ray, d-dimer. We'll give her another aspirin since she is Mundo taken 3 aspirin at home and give her some nitroglycerin. Get some orthostatic vital signs she says she feels weak. She is on spironolactone. Progress Note #2: Time: 16:05 Progress Note The patient has carotid artery ultrasounds from 2018 as well as September 2019, 8 months ago. Both were listed as mild, nonobstructive disease less than 30%. It is unlikely that there is any evolution and this disease process. Were going to do an angiogram but her kidney function would not tolerate it. Ultrasound makes carotid artery disease as a source of her tinnitus much less likely. D-dimer is negative. She does have a UTI and infections can cause recrudescence of her strokelike symptoms which is probably what she is experiencing. Discussed this with the patient and patient says she still feels quite weak and uncomfortable going home so we left a voicemail with Dr. Molina see if she would be willing to observe the patient overnight on antibiotics and fluids. Initial ECG Impression Date: May 30, 2020 Initial ECG Impression Time: 15:00 Initial ECG Rate: 59 Initial ECG Rhythm: Normal Sinus Initial ECG Intervals: Normal Initial ECG Impression: Normal Initial ECG Comparisson: Unchanged Comment Normal sinus rhythm without clinically relevant ST elevation or depression. Diagnostic Imaging Diagonstic Imaging: Xray Plain Films/CT/US/NM/MRI: chest Reviewed: Reviewed by Me Departure Communication (Admissions) Time/Spoke to Admitting Phy: 16:35 Discussed the case with Dr. Molina she agrees to observe the patient for chest pain, UTI with Rocephin and consult cardiology. Time/Spoke to Consulting Phy: 16:30 Discussed the case with Dr. Real and he agrees to consult on the patient for chest pain. Continue Plavix, aspirin and he will see the patient. Impression Primary Impression: UTI (urinary tract infection) Qualified Codes: N30.00 - Acute cystitis without hematuria Additional Impression: Tinnitus, bilateral Disposition: HOME, SELF-CARE Condition: Stable Admissions Decision to Admit Reason: Admit from ER (General) Decision to Admit/Date: May 30, 2020 Time/Decision to Admit Time: 16:00 Departure-Patient Inst. Referrals: MARLEEN MOLINA DO (PCP/Family) Primary Care Physician Stroke Onset of Symptoms Date of Onset of Symptoms: May 30, 2020 Time of Symptom Onset: 06:00 Onset of Symptoms: Yes Symptoms onset unknown: No NIH Stroke Scale Assessment Select: Initial Level of Consciousness: 0=Alert (0), Level of Consciousness- Questions: 0=Answers both month/age (0), LOC Commands: 0=Performs both tasks (0), Gaze: Normal (0), Visual Yun: 0=No visual loss (0), Facial Movement (Facial Paresis): 0=Normal symmetrical mnt (0), Motor Function-Arms Right: 0=No drift (0), Motor Function-Arms Left: 0=No drift (0), Motor Function-Legs Right: 0=No drift (0), Motor Function-Legs Left: 0=No drift (0), Limb Ataxia: 0=Absent (0), Sensory: 0=Normal:no loss (0), Best Language: 0=No aphasia (0), Dysarthria: 0=Normal (0), Extinction & Inattention: 0=No abnormality (0), Total: 0 Stroke Thrombolytic Exclusion Age 18 or Over: Yes Acute intenal hemorrhage: No History of CVA: Yes Uncontrolled Coagulation Defec: No Intracranial Hemorrhage: No Severe Hypertension: No GI or Bleed: No Subarachnoid Hemorrhage: No Intracranial Neoplasm/Aneurysm: No Oral Anticoagulants: No Surgery or Trauma: No Puncture of Non-Compressible V: No Recent CPR: No Diabetic Hemorrhagic Retinopat: No Organ Biopsy: No Recent Obstetric Delivery: No Glucose: No Significant Hepatic Dysfunctio: No NIH Stoke Scale >22: No Bacterial Endocarditis: No Pericarditis: No Improving Symptoms: Yes Platelets: No TPA Contraindication: No IV - TPa Received IV - TPa Procedure Performed?: No MARY MERLOS May 30, 2020 15:09
[2020-05-30] MEDS ORDERED: ASPIRIN 81 MG CHEW (CHILDREN'S ASA) PO ONE (15:15)
[2020-05-30 15:19] VITALS: BP_SYST 126; BP_SYST 148; BP_DIAS 55; BP_DIAS 76; BP_DIAS 80
[2020-05-30] MEDS: NITROGLYCERIN 0.4 MG SL TABS BTL 25'S SL PRN ×2 (15:25→15:48)
[2020-05-30 15:27] LABS: BASOPHILS % (AUTO) 0 % (0-10); EOSINOPHILS # (AUTO) 0.1 10^3/uL (0.0-0.3); EOSINOPHILS % (AUTO) 1 % (0-10); HEMATOCRIT 39 % (35-52); HEMOGLOBIN 12.9 G/DL (11.5-16.0); LYMPHOCYTES # (AUTO) 0.9 X 10^3 (1.0-4.0); LYMPHOCYTES % (AUTO) 16 % (12-44); MEAN CORPUSCULAR HEMOGLOBIN 30 PG (25-34); MEAN CORPUSCULAR HGB CONC 33 G/DL (32-36); MEAN CORPUSCULAR VOLUME 91 FL (80-99); MEAN PLATELET VOLUME 10.4 FL (7.4-10.4); MONOCYTES # (AUTO) 0.6 X 10^3 (0.0-1.0); MONOCYTES % (AUTO) 10 % (0-12); NEUTROPHILS # (AUTO) 4.3 X 10^3 (1.8-7.8); NEUTROPHILS % (AUTO) 73 % (42-75); PLATELET COUNT 257 10^3/uL (130-400); WHITE BLOOD COUNT 5.9 10^3/uL (4.3-11.0)
[2020-05-30 15:37] LABS: PROTHROMBIN TIME PATIENT 13.8 SEC (12.2-14.7)
[2020-05-30 15:38] LABS: ALBUMIN 4.4 GM/DL (3.2-4.5); POTASSIUM 4.6 MMOL/L (3.6-5.0)
[2020-05-30 15:40] LABS: CALCIUM 9.5 MG/DL (8.5-10.1)
[2020-05-30 15:41] LABS: TOTAL PROTEIN 7.1 GM/DL (6.4-8.2)
[2020-05-30 15:43] LABS: BILIRUBIN,TOTAL 0.5 MG/DL (0.1-1.0)
[2020-05-30 15:44] LABS: CREATININE SERUM 1.45 MG/DL (0.60-1.30)
[2020-05-30 15:46] LABS: BACTERIA,URINE LARGE /HPF; BILIRUBIN,URINE NEGATIVE (NEGATIVE); CLARITY,URINE SL CLOUDY; COLOR,URINE YELLOW; GLUCOSE, URINE (UA) NEGATIVE (NEGATIVE); KETONES,URINE NEGATIVE (NEGATIVE); LEUKOCYTE ESTERASE ,URINE 2+ (NEGATIVE); NITRITE,URINE POSITIVE (NEGATIVE); PH,URINE 5.5 (5-9); PROTEIN,URINE NEGATIVE (NEGATIVE); WBC,URINE >100 /HPF
[2020-05-30 15:47] LABS: MAGNESIUM 1.7 MG/DL (1.6-2.4)
--- NOTE | 2020-05-30 15:49 | NUR ---
PT CALLED SON ON HER PHONE ET IT WENT TO [employer]. MESSAGE LEFT PER PT'S REQUEST.
--- NOTE | 2020-05-30 16:10 | NUR ---
DR IN ROOM WITH PT AT THIS TIME.
--- NOTE | 2020-05-30 16:15 | Diagnostic Imaging Report ---
INDICATION: Chest pain. COMPARISON: August 31, 2019. TECHNIQUE: Single radiograph of the chest dated May 30, 2020. FINDINGS: The cardiac silhouette is within normal limits in size. No significant pulmonary vascular congestion. An ovoid calcification is noted overlying the right lung base on the frontal radiograph. When comparing to prior imaging from 2019, this is felt to be a calcification within the right breast. The lungs are otherwise clear. No significant pleural effusion. No pneumothorax. Postsurgical changes within the cervicothoracic spine. No acute osseous abnormality. Vascular calcifications within the aortic arch. IMPRESSION: Stable examination demonstrating chronic and postsurgical changes without acute cardiopulmonary abnormality. Dictated by: Dictated on workstation # [id number]
[2020-05-30] MEDS ORDERED: cefTRIAXone FOR IV USE 1,000 MG in WATER (STERILE) FOR INJECTION 10 ML IV ONE (16:30)
--- NOTE | 2020-05-30 16:37 | NUR ---
IN TALKING TO THE PT AT THIS TIME.
--- NOTE | 2020-05-30 17:00 | NUR ---
RELLSENIA J admitted to room 509-1, with an admitting diagnosis of weakness, chest pain, and UTI on 05/30/20 from ER, accompanied by SHANTELLE Medina. SENIA ZACARIAS introduced to surroundings, call light, bed controls, phone, TV, temperature control, lights, meal times, smoking policy, visitor policy, side rail policy, bathrooms and showers. Patient Rights given to patient in the handbook. SENIA ZACARIAS verbalizes understanding that [facility] is not responsible for the loss or damage to any personal effects or valuables that are kept in the patients posession during their hospitalization. The following Patient Care Plans were discussed with the patient: Discharge Planning, chest pain,urinary tract infection, and generalized weakness. SENIA ZACARIAS verbalizes understanding of Interdisciplinary Patient Education. Patient and/or family were informed about the Rapid Response Team and its purpose.
[2020-05-30] MEDS ORDERED: LACTATED RINGERS 1,000 ML IV SCH (17:15)
[2020-05-30 17:18] VITALS: BP 161/74
[2020-05-30] MEDS ORDERED: morphine INJ 4 MG/ML 1 ML (VIAL/SYRINGE) IV PRN (17:30)
[2020-05-30] MEDS ORDERED: ACETAMINOPHEN 325 MG TABLET PO PRN (17:30)
[2020-05-30] MEDS ORDERED: NITROGLYCERIN 0.4 MG SL TABS BTL 25'S SL PRN (17:30)
[2020-05-30] MEDS ORDERED: ONDANSETRON 4 MG/2 ML (SDV) Z0FRAN IVP PRN (17:30)
[2020-05-30 20:00] VITALS: BP 166/107
--- NOTE | 2020-05-30 21:00 | NUR ---
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 HOW MANY PATIENTS DO YOU HAVE?" PATIENT CONTINUED TO EXPRESS DISCONTENT WITH THE CARE SHE HAD RECEIVED DURING THE DAY AND AT THIS TIME. PT THEN STATED "IT'S NOT YOU, I WAS ALREADY UPSET WHEN YOU GOT HERE". THIS RN EXPRESSED TO PATIENT THAT I WOULD "GIVE THE BEST CARE I POSSIBLY CAN", PATIENT RESPONDED ASKING "DO YOU GUARANTEE YOU'RE GOING TO GIVE ME THE BEST CARE TONIGHT?". THIS RN REITERATED THAT I WOULD "ABSOLUTELY GIVE THE BEST CARE THAT I CAN PROVIDE, THAT YOU ARE IMPORTANT TO ME AND THAT I WOULD DO MY BEST". PATIENT CONTINUED TO EXPRESS HER FRUSTRATION WHEN THIS RN EXPLAINED MEDICATION ORDERED FOR TOMORROW MORNING, PATIENT REQUESTED FOR A DIFFERENT DOCTOR THAN DR. GARBER. THIS RN EXPLAINED THAT THE PATIENT COULD LEAVE IF SHE WASN'T HAPPY WITH THE CARE SHE WAS RECEIVING, THAT IT IS HER RIGHT. SHE SAID SHE WANTED TO LEAVE. 2013 THIS RN CALLED PACK[employer]RI[employer] BEEF, FELA TO SPEAK WITH PATIENT. FELA ALSO EXPRESSED CONCERN FOR PATIENT'S FEELINGS AND ASKED IF THERE'S ANYTHING SHE CAN DO. PATIENT RESPONDED "AT THIS POINT IT'S TOO LATE, I AM READY TO GO". [address] BOSS OF PATIENT REQUEST TO LEAVE AMA. 2019 THIS RN EDUCATED PATIENT ON AMA FORM AND WITNESSED SIGNATURE WITH [employer], FELA PRESENT. 2045 PATIENT DISCHARGED AND TAKEN TO ER ENTRANCE BY BROOK HONG.
[2020-05-31] MEDS ORDERED: GABAPENTIN 300 MG (NEURONTIN) CAP PO SCH (09:00)
[2020-05-31] MEDS ORDERED: CLOPIDOGREL 75 MG (PLAVIX) TABLET PO SCH (09:00)
[2020-05-31] MEDS ORDERED: ASPIRIN E.C. 81 MG (ECOTRIN) TAB PO SCH (09:00)
[2020-05-31] MEDS ORDERED: PANTOPRAZOLE 40 MG (PROTONIX) TAB PO SCH (09:00)
[2020-05-31] MEDS ORDERED: lisINopril 40 MG (PRINIVIL) TABLET PO SCH (09:00)
[2020-05-31] MEDS ORDERED: ASPIRIN 81 MG CHEW (CHILDREN'S ASA) PO SCH (09:00)
[2020-05-31] MEDS ORDERED: cefTRIAXone 1,000 MG/SWFI 10 ML IV PUSH IV SCH ×2 (16:30)
--- NOTE | 2020-06-13 18:37 | Short Stay Summary ---
History of Present Illness History of Present Illness Reason for visit/HPI See ER report Date of Admission May 30, 2020 at 17:00 Date of Discharge May 30, 2020 at 20:46 Time Seen by Provider: 00:00 Attending Physician Angelica Molina DO Admitting Physician Angleica Molina DO Consult Allergies and Home Medications Allergies Coded Allergies: tetanus and diphtheria toxoids (Verified Allergy, Severe, SWELL ING/REDNESS, FEVER, 10/19/19) sulfamethoxazole (Verified Allergy, Mild, HIVES, 10/19/19) trimethoprim (Verified Allergy, Mild, HIVES, 10/19/19) Home Medications Albuterol Sulfate 1 Puff Puff, 2 PUFF IH Q4H PRN for SHORTNESS OF BREATH, (Reported) 1 PUFF = 90 MCG Ascorbic Acid 500 Mg Capsule, 500 MG PO DAILY, (Reported) Ascorbic Acid/Vitamin E/Biotin 1 Each Tab.chew, 1 EACH PO DAILY, (Reported) Aspirin 81 Mg Tab.chew, 81 MG PO DAILY, (Reported) Calcium Phosphate Trib/Vit D3 1 Each Tab.chew, 1 EACH PO DAILY, (Reported) Clopidogrel Bisulfate 75 Mg Tablet, 75 MG PO DAILY, (Reported) Gabapentin 300 Mg Capsule, 300 MG PO DAILY, (Reported) Lisinopril 20 Mg Tablet, 40 MG PO DAILY, (Reported) Metoprolol Succinate 50 Mg Tab.er.24h, 50 MG PO DAILY, (Reported) Omeprazole 20 Mg Tablet.dr, 20 MG PO DAILY, (Reported) Spironolactone 50 Mg Tablet, 50 MG PO DAILY, (Reported) Patient Home Medication List Home Medication List Reviewed: No Past Zxmpbfs-Evcqxz-Yshsij Hx Patient Social History Alcohol Use: Denies Use Recreational Drug Use: No Smoking Status: Never a Smoker Former Smoker, Quit: Oct 19, 1989 2nd Hand Smoke Exposure: Yes Recent Foreign Travel: No Contact w/other who traveled: No Recent Hopitalizations: No Recent Infectious Disease Expo: No Immunizations Up To Date Tetanus Booster (TDap): Unknown Date of Pneumonia Vaccine: May 30, 2019 Date of Influenza Vaccine: May 30, 2019 Seasonal Allergies Seasonal Allergies: Yes (RUNNY NOSE) Surgeries Yes (RIGHT HIP REPLACEMENT,NECK SURG) Orthopedic Respiratory Yes (SOB) Cardiovascular Yes Hypertension Neurological Yes (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, TIA Reproductive System Sexually Transmitted Disease: No HIV/AIDS: No 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 Genitourinary No Gastrointestinal Yes Gastroesophageal Reflux, Chronic Diarrhea Musculoskeletal Yes Chronic Back Pain Endocrine History of Endocrine Disorders: No HEENT History of HEENT Disorders: Yes (GLASSES) Loss of Vision: Denies Hearing Impairment: Denies Cancer No Psychosocial History of Psychiatric Problem: Yes Behavioral Health Disorders: Anxiety, Depression Integumentary History of Skin or Integumenta: No Blood Transfusions History of Blood Disorders: No Adverse Reaction to a Blood Tr: No (N/A) Review of Systems Constitutional: other (not seen) Physical Exam Vital Signs Capillary Refill : Less Than 3 Seconds Height, Weight, BMI Height: 5'4.00" Weight: 141lbs. oz. [id number]; 26.85 BMI Method:Stated General Appearance: Other (not seen) Clinical Quality Measures DVT/VTE Risk/Contraindication: Risk Factor Score Per Nursin RFS Level Per Nursing on Admit: 4+=Very High Stroke: Date of last known well: May 30, 2020 Time of last known well: 06:00 Symptoms onset unknown: No Short Stay Diagnosis Discharge Diagnosis-Short Stay Final Discharge Diagnosis: Patient left AMA--not seen by me Conclusion Labs Microbiology 05/30/20 Urine Culture - Final, Complete Klebsiella pneumoniae Conclusion/Plan Patient left AMA--not seen by me ANGELICA MOLINA DO Jun 13, 2020 18:37
== END 2020-05-30 20:46 | disposition left against medical advice (07) ==
LOC: EDUNIT# 14:58 → ER 15:01 → UNDOADMOB 16:47 → CSD 16:47 → UNDODISOB 20:47
PROVIDERS: ADMIT Family Medicine; ATTEND Family Medicine
DX: N30.00 Acute cystitis without hematuria (principal); H93.13 Tinnitus, bilateral; I10 Essential (primary) hypertension; K21.9 Gastro-esophageal reflux disease without esophagitis; J45.909 Unspecified asthma, uncomplicated; G89.29 Other chronic pain; M54.5 Low back pain; F41.9 Anxiety disorder, unspecified; F32.9 Major depressive disorder, single episode, unspecified; Z79.82 Long term (current) use of aspirin; Z79.51 Long term (current) use of inhaled steroids; Z79.899 Other long term (current) drug therapy; Z88.8 Allergy status to other drugs, medicaments and biological substances; Z88.7 Allergy status to serum and vaccine; Z88.2 Allergy status to sulfonamides; Z88.1 Allergy status to other antibiotic agents; Z86.73 Personal history of transient ischemic attack (TIA), and cerebral infarction without residual deficits
CPT/HCPCS: 71045; 80053; 81000; 83690; 83735; 83874; 83880; 84484; 85025; 85379; 85610; 85730; 87077; 87088; 87186; 93005; 93041; 96374; 99284; G0378; 36415

== ENCOUNTER 2022-11-19 15:52 | Emergency (ER) | payer OTHER, MEDICARE ==
[~2022-11-19] VITALS: Ht 162 cm; Wt 68.5 kg
[~2022-11-19 15:52] MED LIST changes: +ALBU8.5H6 IH; -LISI-552 PO; -LISI-556; +LISI20TA26 PO; +LISI5TAB20; +OMEP20TA56 PO; -OMEP20TA7 PO; -RT-ALBUINH IH
[2022-11-19] MEDS ORDERED: ACETAMINOPHEN 80 MG SUPP (TYLENOL) PR PRN (16:15)
[2022-11-19] MEDS ORDERED: ACETAMINOPHEN 500 MG TAB (TYLENOL) PO ONE (16:45)
--- NOTE | 2022-11-19 16:45 | ED Trauma-Multisystem ---
General Chief Complaint: Trauma-Non Activation Stated Complaint: FALL - HIT HEAD Nursing Triage Note: PT STATES SHE TRIPPED AND FELL AT [employer], CC OF HEMATOMA TO FOREHEAD, DENIES LOC, PT TAKES BLOOD THINNERS. HX OF A SYDNEE IN HER NECK Source of Information: Patient Exam Limitations: No Limitations History of Present Illness Date Seen by Provider: Nov 19, 2022 Time Seen by Provider: 16:31 Initial Comments 72-year-old female presents to the ED after she tripped and fell in the [employer] parking lot at 3 PM. She is complaining of a headache and neck pain. Currently in a c-collar placed by nursing staff. She does take a blood thinner. She has a titanium sydnee in her neck that was placed due to degenerative disc disease. Allergies and Home Medications Allergies Coded Allergies: tetanus and diphtheria toxoids (Verified Allergy, Severe, SWELLING/REDNESS, FEVER, 10/19/19) sulfamethoxazole (Verified Allergy, Mild, HIVES, 10/19/19) trimethoprim (Verified Allergy, Mild, HIVES, 10/19/19) Patient Home Medication List Home Medication List Reviewed: Yes Albuterol Sulfate (Ventolin Hfa) 1 Puff Puff, 2 PUFF IH Q4H PRN for SHORTNESS OF BREATH, (Reported) Entered as Reported by: ROBER CHERY on 10/19/19 1335 Ascorbic Acid (Vitamin C) 500 Mg Capsule, 500 MG PO DAILY, (Reported) Entered as Reported by: ROBER CHERY on 10/19/19 1333 Ascorbic Acid/Vitamin E/Biotin (Hair Skin Nails-Biotin Gummies) 1 Each Tab.chew, 1 EACH PO DAILY, (Reported) Entered as Reported by: ROBER CHERY on 10/19/19 1333 Aspirin (Aspirin) 81 Mg Tab.chew, 81 MG PO DAILY, (Reported) Entered as Reported by: ROBER CHERY on 10/19/19 1333 Calcium Phosphate Trib/Vit D3 (Calcium + Vitamin D3 Gummies) 1 Each Tab.chew, 1 EACH PO DAILY, (Reported) Entered as Reported by: ROBER CHERY on 10/19/19 1333 Clopidogrel Bisulfate (Clopidogrel) 75 Mg Tablet, 75 MG PO DAILY, (Reported) Entered as Reported by: ROBER CHERY on 10/19/19 1333 Gabapentin (Gabapentin) 300 Mg Capsule, 300 MG PO DAILY, (Reported) Entered as Reported by: ROBER CHERY on 10/19/19 1333 Lisinopril (Lisinopril) 20 Mg Tablet, 40 MG PO DAILY, (Reported) Entered as Reported by: ROBER CHERY on 10/19/19 1333 Metoprolol Succinate (Metoprolol Succinate) 50 Mg Tab.er.24h, 50 MG PO DAILY, (Reported) Entered as Reported by: ROBER CHERY on 10/19/19 1333 Omeprazole (Omeprazole) 20 Mg Tablet.dr, 20 MG PO DAILY, (Reported) Entered as Reported by: ROBER CHERY on 10/19/19 1333 Spironolactone (Spironolactone) 50 Mg Tablet, 50 MG PO DAILY, (Reported) Entered as Reported by: ROBER CHERY on 10/19/19 1333 Review of Systems Review of Systems Constitutional: see HPI Past Mtwmile-Tfkxdt-Lxecwi Hx Patient Social History Tobacco Use?: No Substance use?: No Alcohol Use?: No Immunizations Up To Date Tetanus Booster (TDap): Unknown Third COVID19 Vaccination Date: YES Seasonal Allergies Seasonal Allergies: Yes (RUNNY NOSE) Past Medical History Surgery/Hospitalization HX: SYDNEE IN NECK, RT HIP, 2 STROKES, HTN Surgeries: Yes (RIGHT HIP REPLACEMENT,NECK SURG) Orthopedic Respiratory: Yes (SOB) Asthma Cardiac: Yes Hypertension Neurological: Yes (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, TIA ALTERATIONS SEWER History: Menopausal Sexually Transmitted Disease: No HIV/AIDS: No Genitourinary: No Gastrointestinal: Yes Gastroesophageal Reflux, Chronic Diarrhea Musculoskeletal: Yes Chronic Back Pain Endocrine: No HEENT: Yes (GLASSES) Loss of Vision: Denies Hearing Impairment: Denies Cancer: No Psychosocial: Yes Anxiety, Depression Integumentary: No Blood Disorders: No Adverse Reaction/Blood Tranf: No (N/A) Physical Exam Vital Signs Vital Signs - First Documented 11/19/22 15:59 Temp 36.8 Pulse 56 Resp 18 B/P (MAP) 129/85 (100) Pulse Ox 98 O2 Delivery Room Air Height, Weight, BMI Height: 5'4.00" Weight: 141lbs. oz. 63.168705es; 26.00 BMI Method:Stated General Appearance: No Apparent Distress, WD/WN Head: Swelling (Forehead), Tenderness (Forehead) Eyes: Bilateral Eye Normal Inspection, Bilateral Eye PERRL, Bilateral Eye EOMI Ears, Nose, Throat: Hearing Grossly Normal, No Evidence of ENT Injury, No Dental Injury; No Clear Fluid (Ears), No Clear Fluid (Nose), No Hemotympanum, No Midface Instability Neck: Other (Deferred at this time due to c-collar) Cardiovascular: No Edema, No Gallop, No JVD, No Murmur, Bradycardia Respiratory: Lungs Clear, Normal Breath Sounds, No Accessory Muscle Use, No Respiratory Distress Neurologic/Psychiatric: Alert, No Motor/Sensory Deficits, Normal Mood/Affect, barrel cutter II-XII Norm as Tested Skin: Normal Color, Warm/Dry, Other (Abrasion to forehead and nose, hematoma to forehead) Procedures/Interventions Suture Size: 5-0 Progress/Results/Core Measures Results/Orders My Orders Orders - FAN VIVEROS APRN Ct Head/Cervical Spine Wo (11/19/22 16:31) Acetaminophen Tablet (Tylenol Tablet) (11/19/22 16:45) Medications Given in ED Vital Signs/I&O 11/19/22 11/19/22 15:59 17:23 Temp 36.8 Pulse 56 60 Resp 18 14 B/P (MAP) 129/85 (100) 122/79 Pulse Ox 98 97 O2 Delivery Room Air Room Air Blood Pressure Mean: 100 Progress Progress Note #1: Time: 16:44 Progress Note Patient seen and evaluated, resting comfortably in wheelchair, no acute distress. Based on exam and symptoms, concern for intracranial bleed, or C- spine fracture. CT head and neck ordered. Progress Note #2: Time: 17:[address] reviewed. No acute intracranial hemorrhage. No acute fracture dislocation of the cervical spine. Frontal scalp hematoma. No skull fracture. C-collar removed and cervical spine assessed. Tenderness laterally, no midline tenderness, full ROM. Discharge instructions and return precautions provided. Diagnostic Imaging Diagonstic Imaging: CT Plain Films/CT/US/NM/MRI: c-spine, head Comments [facility]. [place], [place] NAME: SENIA ZACARIAS MED REC#: [id number] PT STATUS: REG ER : 1950 PHYSICIAN: FAN VIVEROS APRN ADMIT DATE: 11/19/22/ER Signed Date of Exam:11/19/22 CT HEAD/CERVICAL SPINE WO PROCEDURE: CT head and CT cervical spine without contrast. TECHNIQUE: Multiple contiguous axial images were obtained through the brain and cervical spine without the use of intravenous contrast. Sagittal and coronal reformations through the cervical spine were then performed. Auto Exposure Controls were utilized during the CT exam to meet ALARA standards for radiation dose reduction. INDICATION: Headache and neck pain after fall COMPARISON: CT of the head on 08/31/2019 FINDINGS: The chaney-white matter differentiation is preserved. Chronic lacunar infarct within the right van radiata. Mild generalized cerebral volume loss. Mild nonspecific periventricular hypoattenuation. Scattered calcifications of the intracranial vasculature. No acute intracranial hemorrhage. Frontal scalp hematoma. No skull fracture. ACDF from C3 to C7. No acute fracture or dislocation of the cervical spine. No hardware fracture or migration. No high density fluid within the spinal canal. Mild multilevel degenerative changes in the cervical spine with mild multilevel spinal canal and neural foraminal narrowing. Included views of the soft tissues demonstrates bilateral carotid atherosclerosis. At the lung apices are clear. IMPRESSION: No acute intracranial hemorrhage. No large vascular territory tang-white loss. No intracranial mass, midline shift, or hydrocephalus.. No acute fracture dislocation of the cervical spine. Frontal scalp hematoma. No skull fracture. Dictated by: Dictated on workstation # [id number] Dict: 11/19/22 1652 Trans: 11/19/22 165 [facility] [place] [id number] Interpreted by: ADRIAN WRIGHT DO Electronically signed by: ADRIAN WRIGHT DO 11/19/22 1657 Departure Impression Primary Impression: Head injury Disposition: 01 HOME, SELF-CARE Condition: Stable Departure-Patient Inst. Decision time for Depature: 17:13 Referrals: MARLEEN GARBER DO (PCP/Family) Primary Care Physician Patient Instructions: Minor Head Injury Add. Discharge Instructions: You may take Tylenol as needed for pain. Follow-up with your primary care provider. Return if you have worsening or uncontrolled pain, vision changes, recurrent vomiting, difficulty with normal activities, abnormal behavior, difficulty walking, numbness, weakness, or any other new, concerning, or worsening symptoms. All discharge instructions reviewed with patient and/or family. Voiced understanding. FAN VIVEROS APRN Nov 19, 2022 16:45
--- NOTE | 2022-11-19 16:59 | Diagnostic Imaging Report ---
PROCEDURE: CT head and CT cervical spine without contrast. TECHNIQUE: Multiple contiguous axial images were obtained through the brain and cervical spine without the use of intravenous contrast. Sagittal and coronal reformations through the cervical spine were then performed. Auto Exposure Controls were utilized during the CT exam to meet ALARA standards for radiation dose reduction. INDICATION: Headache and neck pain after fall COMPARISON: CT of the head on 08/31/2019 FINDINGS: The chaney-white matter differentiation is preserved. Chronic lacunar infarct within the right van radiata. Mild generalized cerebral volume loss. Mild nonspecific periventricular hypoattenuation. Scattered calcifications of the intracranial vasculature. No acute intracranial hemorrhage. Frontal scalp hematoma. No skull fracture. ACDF from C3 to C7. No acute fracture or dislocation of the cervical spine. No hardware fracture or migration. No high density fluid within the spinal canal. Mild multilevel degenerative changes in the cervical spine with mild multilevel spinal canal and neural foraminal narrowing. Included views of the soft tissues demonstrates bilateral carotid atherosclerosis. At the lung apices are clear. IMPRESSION: No acute intracranial hemorrhage. No large vascular territory tang-white loss. No intracranial mass, midline shift, or hydrocephalus.. No acute fracture dislocation of the cervical spine. Frontal scalp hematoma. No skull fracture. Dictated by: Dictated on workstation # [id number]
[2022-11-19 17:23] VITALS: BP 122/79
== END 2022-11-19 17:23 | disposition home or self-care (01) ==
LOC: EDUNIT# 15:52 → ER 15:53
DX: S09.90XA Unspecified injury of head, initial encounter (principal); S00.03XA Contusion of scalp, initial encounter; S10.91XA Abrasion of unspecified part of neck, initial encounter; Z96.698 Presence of other orthopedic joint implants; Z79.01 Long term (current) use of anticoagulants; W01.10XA Fall on same level from slipping, tripping and stumbling with subsequent striking against unspecified object, initial encounter; Y92.481 Parking lot as the place of occurrence of the external cause
CPT/HCPCS: 70450; 72125